=== PATIENT | male | born 1945 | race Caucasian/White ===

== ENCOUNTER 2020-12-14 09:34 | Emergency (ER) | payer MEDICARE, BC ==
[~2020-12-14] VITALS: Ht 180.3 cm; Wt 89.0 kg
[~2020-12-14 09:34] MED LIST: ASPI81TA45 PO; ATOR40TA78 PO; FAMO20TA7 PO; LOSA100T2 PO; METF10007 PO; TEMA30CA6 PO
--- NOTE | 2020-12-14 10:53 | NUR ---
PT AMBULATORY TO ROOM 32 W/ C/O ABD PAIN AND TENDERNESS THROUGHOUT STARTED MONTHS AGO. PT STATES HE HAD A CPOLONOSCOPY AND STOOL SAMPLES AND OTHER TESTS DONE 1 MONTH AGO. PT C/O DIARRHEA ON/OFF. PT RESTING ON GURNEY. NADN. MONITORS APPLIED. VSS. WARM BLANKET PROVIDED. PT SCHEDULED TO SEE [facility] DR. FREEMAN TODAY AT 1330.
[2020-12-14] MEDS ORDERED: OMNIPAQUE 350 MG/ML, 100ML BOTTLE ONE (11:00)
[2020-12-14] MEDS ORDERED: SODIUM CHLORIDE 0.9% 1,000ML IVBOLUS ONE (11:30)
[2020-12-14] MEDS ORDERED: MORPHINE SULFATE 4 MG/ML, 1ML IVPush PRN (11:30)
[2020-12-14] MEDS ORDERED: SODIUM CHLORIDE FLUSH 10ML SYR IVF ONE (11:30)
[2020-12-14 11:35] LABS: BASOPHILS % (AUTO) 0 % (0-1); EOSINOPHILS % (AUTO) 1 % (1-7); LYMPHOCYTES % (AUTO) 18 % (22-44); MEAN CORPUSCULAR HEMOGLOBIN 30.8 pg (27.5-34.5); MEAN PLATELET VOLUME 7.5 fL (7.4-10.4); MONOCYTES % (AUTO) 6 % (2-9); NEUTROPHILS % (AUTO) 75 % (42-75); PLATELET COUNT 198 x10^3/uL (130-400); RED BLOOD COUNT 4.87 x10^6/uL (4.38-5.82); RED CELL DISTRIBUTION WIDTH 13.7 % (9.4-14.8)
[2020-12-14] MEDS ORDERED: MORPHINE SULFATE 4 MG/ML, 1ML ONE (11:38)
[2020-12-14 11:45] LABS: ALANINE AMINOTRANSFERASE 41 U/L (12-78); ALBUMIN 3.5 g/dL (3.4-5.0); ANION GAP 3 mmol/L (5-15); CALCIUM 8.8 mg/dL (8.5-10.1); CHLORIDE 112 mmol/L (98-107); CREATININE 1.49 mg/dL (0.7-1.3)
[2020-12-14 11:50] LABS: ALKALINE PHOSPHATASE 98 U/L (45-117); BILIRUBIN,TOTAL 0.4 mg/dL (0.2-1.0); TOTAL PROTEIN 7.3 g/dL (6.4-8.2); TROPONIN I < 0.015 ng/mL (0.000-0.045)
--- NOTE | 2020-12-14 11:51 | NUR ---
PT RESTING ON GURNEY. NADN. REA.
[2020-12-14 12:16] LABS: MICROSCOPIC NOT IND
--- NOTE | 2020-12-14 12:42 | NUR ---
PT RESTING ON GURNEY. NADN. REA.
[2020-12-14 12:58] LABS: CLOSTRIDIUM DIFFICILE ANTIGEN NEGATIVE; CLOSTRIDIUM DIFFICILE TOXIN NEGATIVE (Negative)
--- NOTE | 2020-12-14 13:58 | NUR ---
PT RESTING ON GURNEY. NADN. REA.
--- NOTE | 2020-12-14 14:23 | NUR ---
DIRECTOR OF OPERATIONS SUPPORT: PT BACK IN ROOM
[2020-12-14 15:30] VITALS: BP 132/80
== END 2020-12-14 15:39 | disposition home or self-care (01) ==
LOC: ED 13:46
DX: K21.9 Gastro-esophageal reflux disease without esophagitis (principal); R19.7 Diarrhea, unspecified; J18.0 Bronchopneumonia, unspecified organism; N28.9 Disorder of kidney and ureter, unspecified; Z20.822 Contact with and (suspected) exposure to COVID-19; I10 Essential (primary) hypertension; E11.9 Type 2 diabetes mellitus without complications
CPT/HCPCS: 36415; 71045; 74177; 80053; 81003; 83605; 83690; 83735; 84484; 85025; 87324; 89055; 93005; 96361; 96374; 99285; J2270; J7030; Q9967; U0003; U0005